=== PATIENT | female | born 1960 | race Caucasian/White ===

== ENCOUNTER → 2024-11-07 | Outpatient (CLI) | payer MEDICAID ==
[2024-11-07 10:19] LABS: ALBUMIN 4.2 g/dL (3.4-4.8); EOS # 0.16 K/mm3 (0.04-0.40); HEMATOCRIT 45.9 % (37.0-47.0); HEMOGLOBIN 14.2 g/dL (12.5-16.0); LYMPH# 0.99 K/mm3 (1.50-4.00); MEAN CELL VOLUME 93 fl (78-100); MEAN CORPUSCULAR HEMOGLOBIN 29 pg (27-31); MEAN CORPUSCULAR HGB CONC 31 g/dL (33-37); MEAN PLATELET VOLUME 10.6 fl (7.4-10.4); MONO # 0.37 K/mm3 (0.20-0.80); RED BLOOD COUNT 4.92 M/mm3 (4.10-5.30); RED CELL DISTRIBUTION WIDTH 13.5 % (11.5-14.5); SODIUM 142 mmol/L (136-145); WHITE BLOOD COUNT 5.3 K/mm3 (4.8-10.8)
[2024-11-07 10:20] LABS: CALCIUM 10.2 mg/dL (8.3-10.5)
[2024-11-07 10:22] LABS: GLUCOSE 82 mg/dL (65-105)
[2024-11-07 10:23] LABS: CARBON DIOXIDE 25 mmol/L (23-31); TOTAL BILIRUBIN 0.4 mg/dL (0.2-1.2)
[2024-11-07 10:27] LABS: AST-SGOT 7 U/L (5-34)
[2024-11-07 10:29] LABS: ALT/SGPT < 6 U/L (0-55)
[2024-11-07 10:44] LABS: PLATELET COUNT 192 K/mm3 (130-400)
== END ==
LOC: LAB 09:46
PROVIDERS: Family Medicine
DX: Z01.89 Encounter for other specified special examinations (principal)